=== PATIENT | male | born 1975 | race Caucasian/White ===

== ENCOUNTER 2018-05-21 19:23 | Emergency (ER) | payer BC, SELFPAY ==
[2018-05-21 19:24] VITALS: BP 131/73; PULSE 105; RESP 16; TEMP 36.4; O2SAT 95; BMI 31.0
--- NOTE | 2018-05-21 20:00 | ED.VISSUMM ---
- ER Visit Summary Date of Service: 05/21/18 Chief Complaint: Back and shoulder pain History of Present Illness: The patient is a 43 M increasing left shoulder and back pain over the past 2 weeks. Symptoms started after heavy moving activities. No falls or direct injuries. No paresthesias. Saw the chiropractor twice a week ago with transient relief. Saw his PCP 2 days ago placed on Flexeril. Symptoms not improving. History of [place] with stent in July of last year on Brilinta. He has been trying Tylenol with no relief. Symptoms worse with movement. Denies previous similar symptoms in the past. Patient has tolerated Percocet in the past with history of kidney stones. Denies any recent opiate prescriptions. Physical Examination: General: Alert and oriented ?3, mild distress HEENT: Normocephalic, atraumatic. Moist mucosa membranes Neck: supple, nontender. Cardiovascular: Regular rate and rhythm, no murmurs Respiratory: Normal breath sounds, symmetric, no distress Back: Reproducible tenderness at the left trapezius and lat muscles. Mild tenderness at the left rhomboids. No bony midline tenderness. Abdomen: Soft, nontender, nondistended Extremities: Nontender, no edema, pulses intact ?4 Neuro: no focal neurological deficits. Test Results: [] Emergency Department Course and Treatment: Patient with reproducible muscle pain. Patient will be switched to Valium with first dose in the ED. Percocet given for symptom control. No NSAIDs due to his Brilinta use an TN history recently.OARRS report is negative. 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 He will follow-up with his PCP for refills. Treatment Plan: [] Disposition: Discharge Impression: 1. Thoracic muscle strain This note was generated with Reverse [employer] dictation software. It may contain incorrect words, spelling, and punctuation that were not noted in review of the chart prior to signing ED Disposition - Plan for ED Patient: Disposition: Home or Assisted Living Chief Complaint: Back Diagnosis: Strain of muscle and tendon of back wall of thorax, initial encounter Instructions: ED Sprain Thoracic Spine Prescriptions: Oxycodone HCl/Acetaminophen [Percocet 5/325] 1 tablet PO Q6H PRN PRN 3 Days #12 tablet PRN Reason: Pain Diazepam [Valium] 5 mg PO Q8 PRN #15 tablet PRN Reason: Muscle Spasm Referrals: Cisco Yoder MD [Primary Care Provider] - 3-5 Days
[2018-05-21] MEDS: diazePAM 5 MG Tablet PO (20:05)
[2018-05-21] MEDS: oxyCODONE 5 MG Tablet PO (20:05)
== END 2018-05-21 20:10 | disposition home or self-care (01) ==
PROVIDERS: Emergency Provider Emergency Medicine; Family Provider Family Medicine; PCP Family Medicine
DX: S29.012A Strain of muscle and tendon of back wall of thorax, initial encounter (principal); I25.2 Old myocardial infarction; I10 Essential (primary) hypertension; E78.00 Pure hypercholesterolemia, unspecified; Z95.5 Presence of coronary angioplasty implant and graft; Z87.442 Personal history of urinary calculi; Z79.82 Long term (current) use of aspirin; Z79.84 Long term (current) use of oral hypoglycemic drugs; Z79.02 Long term (current) use of antithrombotics/antiplatelets; Z79.899 Other long term (current) drug therapy; X50.0XXA Overexertion from strenuous movement or load, initial encounter; Y93.89 Activity, other specified; Y92.89 Other specified places as the place of occurrence of the external cause; Y99.8 Other external cause status
CPT/HCPCS: 99281

== ENCOUNTER → 2019-04-25 | Outpatient (CLI) | payer OTHER, SELFPAY ==
--- NOTE | 2019-04-25 10:45 | MRI_ITS ---
STUDY: MRI LEFT SHOULDER REASON FOR EXAM: Male, 44 years old. Left shoulder sprain after lifting injury 2 days ago. Pain. TECHNIQUE: Standardized fat and water weighted pulse sequences were obtained in all 3 orthogonal planes. COMPARISON: None. FINDINGS: Minimal supraspinatus and infraspinatus tendinosis without a full-thickness tear (coronal series 5 images 7-13). Subscapularis tendinosis. No full-thickness tear (axial series 4 images 12-16). Normal teres minor tendon. Normal supraspinatus muscle. Normal infraspinatus muscle. Normal subscapularis muscle. Normal teres minor muscle. Postsurgical changes of repair of the posterior and inferior glenoid labrum (axial series 4 images 15-19). Small glenohumeral joint effusion (axial series 4 image 13). Cystic change in the anteromedial aspect of the humeral head (axial series 01/01/2011). Normal biceps labral complex. Normal intracapsular long biceps tendon. Normal capsulo- ligamentous complex. Normal rotator interval. Acromioclavicular joint hypertrophy with narrowing of the subacromial space. AC joint effusion (coronal series 6 images in-18). There is a Type II morphology (curved), with a neutral orientation. There is no subacromial-subdeltoid bursal fluid. Normal visualized coracohumeral and coracoacromial ligaments. Normal quadrilateral space. Normal axillary space. Normal deltoid muscle. Normal trapezius muscle. MRI/Upper Ext Joint Only(Routine) IMPRESSION: Minimal supraspinatus, infraspinatus and subscapularis tendinosis. No full-thickness tear is present. Postsurgical changes of repair of the posterior and inferior glenoid labrum. Cystic change in the humeral head. Acromioclavicular joint hypertrophy with narrowing of the subacromial space. AC joint effusion. Glenohumeral joint effusion. Electronically Signed: Holland Fernandez MD at 12:37 EDT , Service support ,
== END | disposition home or self-care (01) ==
PROVIDERS: Family Provider Family Medicine; PCP Family Medicine; Referring Provider Family Medicine; Visit Provider Family Medicine
DX: S43.402A Unspecified sprain of left shoulder joint, initial encounter (principal)
CPT/HCPCS: 73221

== ENCOUNTER 2019-10-01 00:50 | Emergency (ER) | payer BC, SELFPAY ==
[2019-10-01 00:52] VITALS: BP 156/112; PULSE 101; RESP 20; TEMP 36.4; O2SAT 100; BMI 32.6
[2019-10-01 00:55] VITALS: BP 156/112; PULSE 101; RESP 20; O2SAT 100
--- NOTE | 2019-10-01 01:15 | RAD_ITS ---
STUDY: X-RAY - LEFT SHOULDER REASON FOR EXAM: Male, 44 years old. LT SHOULDER PAIN FROM LIFTING HEAVY OBJECT TONIGHT, HX OF LT SHOULDER SURGERY IN JULY 2019 TECHNIQUE: 4 view(s) of the shoulder. COMPARISON: None. FINDINGS: Normal glenohumeral articulation. There is degenerative arthrosis of the acromioclavicular joint without inferior osseous spur formation. Normal acromion. Normal humeral head and visualized proximal humerus. The soft tissue structures are unremarkable. Normal visualized pulmonary apex. RAD/Shoulder min 2 Views IMPRESSION: There is degenerative arthrosis of the acromioclavicular joint. Electronically Signed: Amy Chanel, at 2:10 EST Tel , Service support ,
[2019-10-01] MEDS: HYDROcodone Bitartrate/Apap 5/325 Tablet PO (01:19)
--- NOTE | 2019-10-01 02:00 | ED.DCSUM_ITS ---
History of Present Illness Chief Complaint: Upper Extremity Injury Informant: Patient Occurred: Days - 2 Context: Sudden Onset Timing: Continuous Quality of Pain: Sharp Associated Symptoms: Negative for: Parasthesia, Weakness, Loss of Funtion Narrative: Patient is a 44-year-old male with history of left bicep tendon repair presenting with pain of his left shoulder. Patient states he was moving 25 pound dresser 2 days ago when he felt a pop in his shoulder. Since then he has had worsening pain in his shoulder. He states he cannot move his arm/shoulder because of the pain. The pain is diffuse and over the top of the shoulder and into his upper chest. He states it is now starting to radiate into his neck. He denies any vision changes. He denies any numbness or tingling. He denies any associated chest pain or shortness of breath. He denies any other complaints at this time. He is been alternating Tylenol and aspirin at home for his pain. He also thinks he is taken some Motrin. Past Medical History - Allergies and Home Meds Allergies/Adverse Reactions: Allergies No Known Allergies Allergy (Verified 05/21/18 19:26) Primary Care Physician: Cisco Yoder MD [Primary Care Provider] - Past Medical History: - - Coronary artery disease, hypertension, depression Surgical History: - - Left bicep surgery, cardiac stent Lives: With Family Smoking Status: Former smoker Review of Systems General: Denies: Chills, Fever, Sweats Eyes: Denies: Visual changes - bilaterally, Diplopia ENT: Denies: Rhinorrhea, Sore throat Cardiovascular: Denies: Chest pain, Palpitations Respiratory: Denies: Dyspnea, Cough, Dyspnea on exertion Gastrointestinal: Denies: Abdominal pain, Nausea, Vomiting, Diarrhea, Melena, Hematochezia Genitourinary: Denies: Dysuria, Hematuria, Frequency Musculoskeletal: Reports: Extremity Pain - Left shoulder. Denies: Back pain, Swelling Skin: Denies: Rash, Wounds Neurological: Denies: Headache, Weakness, Numbness Physical Exam Vital Signs/Narrative: Vital Signs Temp Pulse Resp BP Pulse Ox 10/01/19 00:55 101 H 20 H 156/112 H 100 10/01/19 00:52 97.5 F L 101 H 20 H 156/112 H 100 Inital Vital Signs reviewed: Yes Left Shoulder: Limited ROM - In all planes secondary to pain. Negative for: Deformity, Edema Left Humerus: Negative for: Abrasion, Contusion, Deformity, Edema, Limited ROM Left Elbow: Negative for: Deformity, Edema, Limited ROM Left Forearm: Negative for: Deformity, Hematoma, Limited ROM Left Wrist: Negative for: Deformity, Hematoma, Limited ROM General: Well nourished, Well developed Head: Normocephalic, Atraumatic Eyes: Perrl, EOMI ENT: No Trauma, Moist Mucous Membranes Neck: Nontender, Full ROM Cardiovascular: Regular rate, Regular rhythm, No murmurs Respiratory: No distress, CTA bilaterally, Chest nontender Abdomen: Soft, Nontender, Nondistended, Normal bowel sounds Back: Nontender Skin: Normal color, No rash Neurological: Alert, Oriented x3, Cranial nerves II-XII grossly intact, Normal Strength, Normal Sensation Psychological: Normal affect Diagnostic/Tx/Re-eval Clinical Impression(s) from Imaging Studies Shoulder X-Ray 10/01/19 01:15 IMPRESSION: There is degenerative arthrosis of the acromioclavicular joint. Electronically Signed: Amy Chanel, at 2:10 EST Tel , Service support , - Medical Decision Making Patient is evaluated for left shoulder pain. He was moving something when he felt a pop. He has had pain and decreased range of motion since then. Patient has appointment to see his orthopedist in 3 days. He is neurovascularly intact. X-ray shows some degenerative changes but no acute fracture dislocation. I suspect rotator cuff injury as he is significant pain when he tries to flex his shoulder above 90 degrees or abduction above 45 degrees. Patient is treated with [place] in the emergency room. He is discharged home with a short course of it after an oars report is checked and it shows that he does not have any active opioid prescriptions. Patient will continue to take ibuprofen as needed as well. Patient is counseled on signs and symptoms requiring return to the emergency room. Patient verbalizes agreement and understand this plan. Patient discharged home in stable and improved condition. ED Disposition - Plan for ED Patient: Disposition: Home or Assisted Living Diagnosis: Injury of left shoulder Instructions: Rotator Cuff Tear Prescriptions: Ibuprofen [Motrin] 600 mg PO Q6H PRN PRN #20 tab PRN Reason: Pain Score 1-1010 Prescription Printed Hydrocodone/Acetaminophen [[place] 5-325 Tablet] 1 ea PO Q6H PRN PRN 3 Days #12 tab PRN Reason: Pain Score 6-10/10 Prescription Printed Referrals: Cisco Yoder MD [Primary Care Provider] - Additional Instructions: Please follow-up with your orthopedist as soon as you can. I suspect you have an injury of your rotator cuff. Return the emergency room if you develop w orsening symptoms, numbness or inability to use your arm.
[2019-10-01 03:01] VITALS: BP 124/95; PULSE 74; RESP 15; O2SAT 98
== END 2019-10-01 03:01 | disposition home or self-care (01) ==
PROVIDERS: Emergency Provider Emergency Medicine; Family Provider Family Medicine; PCP Family Medicine
DX: S49.92XA Unspecified injury of left shoulder and upper arm, initial encounter (principal); X50.0XXA Overexertion from strenuous movement or load, initial encounter; Y93.89 Activity, other specified; M19.012 Primary osteoarthritis, left shoulder; I25.10 Atherosclerotic heart disease of native coronary artery without angina pectoris; I10 Essential (primary) hypertension; F32.9 Major depressive disorder, single episode, unspecified; Z95.5 Presence of coronary angioplasty implant and graft; Z79.82 Long term (current) use of aspirin; Z79.899 Other long term (current) drug therapy; Z87.891 Personal history of nicotine dependence
CPT/HCPCS: 73030; 99283

== ENCOUNTER 2022-11-21 08:04 | Emergency (ER) | payer BC, SELFPAY ==
[2022-11-21 08:05] VITALS: BP 150/95; PULSE 97; RESP 24; TEMP 36.6; O2SAT 94; BMI 32.1
[2022-11-21 08:18] VITALS: BP 146/95; PULSE 88; RESP 18; TEMP 36.8; O2SAT 94
--- NOTE | 2022-11-21 08:24 | EDS_ITS ---
HPI HPI - URI History of Present Illness Chief Complaint: Cold Sx Informant: patient Narrative Narrative: Patient ill for 5 or 6 days total, with cough nonproductive, congestion, sore throat, some headaches, no fevers or chills that he knows of, no fatigue or myalgias. Called his doctor thought he had a sinus infection and empirically placed on amoxicillin, was not seen physically in the office. Started amoxicillin 2 days ago. Feels like he is getting worse now swelling in his throat, and difficulty breathing as a result of the sensation of swelling in the throat. He does not have any feelings in his chest like that is the cause of his dyspnea. Denies any chest pain. His throat hurts a lot, more on the right side of his neck submandibular area where he points to. He had an anterior decompression and fusion of the cervical spine remotely and has a right-sided scar anterior neck from that. Patient states he can lay down without trouble breathing or more so than while sitting. He is unvaccinated against COVID and influenza. He denies any known sick contacts. ROS ROS ED Constitutional Constitutional ED: Denies body ache(s), chills, fatigue or fever(s) ENT ENT ED: Reports as per HPI, nasal congestion, rhinorrhea and sore throat; Denies ear pain Cardiovascular Cardiovascular: Denies chest pain or palpitations Respiratory/Chest Respiratory/Chest: Reports as per HPI, cough and dyspnea; Denies dyspnea on exertion Gastrointestinal Gastrointestinal: Denies abdominal pain, diarrhea, nausea or vomiting Genitourinary Genitourinary ED: Denies dysuria or hematuria Musculoskeletal Musculoskeletal: Denies myalgias or neck pain Integumentary Denies abscess or rash Neurologic Neurologic: Reports headache(s); Denies paresthesias or weakness Psychiatric Psychiatric: Denies depression or suicidal thoughts Endocrine Endocrinology: Denies polydipsia or polyuria [facility] Medical History (Updated 11/21/22 @ 11:[address] Bob Warren MD) CAD (coronary artery disease) Insulin dependent diabetes mellitus Home Medications aspirin 81 mg chewable tablet 81 mg PO DAILY 05/21/18 [History Last Taken Unknown] dulaglutide 0.75 mg/0.5 mL subcutaneous pen injector (Trulicity) 0.75 mg SQ QWEEK 05/21/18 [History Last Taken Unknown] lisinopril 5 mg tablet 5 mg PO DAILY 05/21/18 [History Last Taken Unknown] metformin 500 mg tablet 500 mg PO DAILY 05/21/18 [History Last Taken Unknown] rosuvastatin 20 mg tablet 20 mg PO DAILY 05/21/18 [History Last Taken Unknown] sertraline 50 mg tablet 50 mg PO DAILY 05/21/18 [History Last Taken Unknown] testosterone cypionate 200 mg/mL intramuscular kit (Testone CIK) 200 mg IM QWEEK 05/21/18 [History Last Taken Unknown] ticagrelor 90 mg tablet (Brilinta) 90 mg PO BID 05/21/18 [History Last Taken Unknown] ibuprofen 600 mg tablet 600 mg PO Q6H PRN PRN Pain Score 1-1010 #20 tabs 10/01/19 [Rx Last Taken Unknown] insulin aspart U-100 100 unit/mL (3 mL) subcutaneous pen 15 units SQ TID 02/13 [History Last Taken Unknown] Allergy/AdvReac Type Severity Reaction Status Date / Time No Known Allergies Allergy Verified 11/21/22 08:07 Family History no significant family his Surgical History History of coronary artery stent placement Social History Smoking Status: Former smoker EXAM Physical Exam Const Vital Signs: 11/21/22 08:05 11/21/22 08:18 11/21/22 08:18 Temperature 97.8 F 98.2 F 98.2 F Temperature Source Temporal Oral Oral Pulse Rate 97 88 88 Respiratory Rate 24 H 18 18 Blood Pressure 150/95 H 146/95 H 146/95 H Blood Pressure Mean 113 112 112 Pulse Ox 94 94 94 Oxygen Delivery Method Room Air Room Air Room Air 11/21/22 08:18 11/21/22 09:32 Temperature 98.1 F Temperature Source Oral Pulse Rate 92 Respiratory Rate 16 Blood Pressure 144/97 H Blood Pressure Mean 112 Pulse Ox 95 Oxygen Delivery Method Room Air Room Air Positive well nourished and well developed General Appearance ED: well developed and NAD HEENT Reports moist mucous membranes HEENT Narrative: Mild trismus. Posterior oropharyngeal erythema, both tonsils appear to be prominent but there is no asymmetry in the uvula appears unremarkable. No tongue elevation or submental edema. No purulent nasal discharge or sinus tenderness. normocephalic and atraumatic Eyes PERRL and EOMs intact bilaterally Neck supple and no meningeal signs Neck Narrative: Tender right submandibular more than left. No posterior tenderness or obvious lymphadenopathy. I do not palpate any obviously enlarged lymph nodes. There is no objective swelling exteriorly. Patient can extend his neck by tilting his chin up in the air while sitting without any stridor or dyspnea. Resp normal respiratory effort and clear to auscultation bilaterally Cardio no murmurs Rate: regular rate; Negative for tachycardic Rhythm: regular rhythm Back/Spine normal ROM Extremity normal to inspection and full ROM Neuro oriented x3, CN's II-XII intact bilaterally and no sensory deficits noted Sensorium / Orientation: alert Motor Exam: strength 5/5 throughout Psych mental status grossly normal Skin Lesions: no lesions Rashes: no rashes MDM MDM MDM Narrative Medical decision making narrative: Initially swabs for strep, COVID, flu performed, those were negative so I thought prudent to obtain CT of the neck soft tissues given the patient's symptoms and trismus. labs were obtained at this time to, these were reviewed by myself. Slightly elevated glucose of 200, white blood count 20, slight leftward shift no bandemia, and CT shows a right peritonsillar abscess with an air-fluid level and retropharyngeal extension with mass effect on the hypopharynx/airway. Empirically treated with Unasyn 3 g IV as well as Decadron 10 mg despite the risk of hyperglycemia given the benefits outweigh the risks here. Clinically, the patient is spitting secretions and tolerating them, and his airway is patent without stridor or distress. We do not have any otolaryngology coverage at this time or all weekend, it is Wednesday morning. Therefore the patient will require transfer for further otolaryngology evaluation. I discussed with ENT Dr. Robbins at [facility]. Attempted to send images but he was not able to see them, he agrees with sending the patient to the ED so that they could evaluate clinically further. Excepted their to the ED by Dr. Newman. Lab Data Attestation: I reviewed the patient's lab results. Labs: Laboratory Results - last 24 hr 11/21/22 11/21/22 09:23 09:23 WBC 20.0 H RBC 5.70 Hgb 16.5 Hct 47.8 MCV 83.9 MCH 28.9 MCHC 34.5 RDW Std Deviation 36.9 RDW Coeff of Radha 12.2 Plt Count 262 MPV 10.1 Immature Gran % (Auto) 0.500 Neut % (Auto) 80.7 H Lymph % (Auto) 10.5 L [place] % (Auto) 7.8 Eos % (Auto) 0.1 Baso % (Auto) 0.4 Absolute Neuts (auto) 16.2 H Absolute Lymphs (auto) 2.10 Nucleated RBC % 0 Diff Path Review May foll Platelet Estimate ADEQUATE Microcytosis RARE Sodium 134 L Potassium 3.9 Chloride 100 Carbon Dioxide 27.0 Anion Gap 7 BUN 18 Creatinine 1.00 Estim Creat Clear Calc 84.46 Est GFR (MDRD) Af Amer 102 Est GFR (MDRD) Non-Af 85 BUN/Creatinine Ratio 18.0 Glucose 200 H Calcium 9.4 Radiography Diagnostic Testing: Clinical Impression(s) from Imaging Studies Soft Tissue Neck CT 11/21/22 09:07 IMPRESSION: The right hypopharynx, there are multiple suspicious low-density enhancing lesions, some containing air consistent with abscesses. These abscesses are causing mass effect upon the right hypopharynx and deviating the airway from right to left. Additionally, the sagittal images show that there is also retropharyngeal involvement with a thin fluid line noted from C2 to C4. There is associated mass effect and disruption of the fat planes but no suspicious adenopathy. ENT consultation and direct visualization recommended for further evaluation N.B. : The above Results were Read Back by Jordan Amador MD to Bob Warren MD, and understanding confirmed on 11/21/2022 10:03:18 (ET). Electronically Signed: Jordan Amador MD at 10:04 EST , ADDENDUM: 11/21/22 1011 IMPRESSION: The right hypopharynx, there are multiple suspicious low-density enhancing lesions, some containing air consistent with abscesses. These abscesses are causing mass effect upon the right hypopharynx and deviating the airway from right to left. Additionally, the sagittal images show that there is also retropharyngeal involvement with a thin fluid line noted from C2 to C4. There is associated mass effect and disruption of the fat planes but no suspicious adenopathy. ENT consultation and direct visualization recommended for further evaluation N.B. : The above Results were Read Back by Jordan Amador MD to Bob Warren MD, and understanding confirmed on 11/21/2022 10:03:18 (ET). Electronically Signed: Jordan Amador MD at 10:04 EST , Discharge Plan Triage Chief Complaint: Cold Sx ED Provider: Bob Warren Dx/Rx/DC Orders Clinical Impression: Peritonsillar abscess Prescriptions: No Action metformin 500 MG tablet 500 mg PO DAILY Label Comments: TAKE 1 TABLET BY MOUTH TWICE A DAY aspirin 81 MG Tab.Chew 81 mg PO DAILY Label Comments: CHEW AND SWOLLOW 1 TABLET BY MOUTH EVERY DAY lisinopril 5 MG tablet 5 mg PO DAILY Label Comments: TAKE 1 TABLET BY MOUTH EVERY DAY sertraline 50 MG tablet 50 mg PO DAILY Label Comments: TAKE ONE TABLET ORALLY ONCE A DAY rosuvastatin 20 MG tablet 20 mg PO DAILY Label Comments: TAKE 2 TABLETS BY MOUTH DAILY ticagrelor [Brilinta] 90 MG tablet 90 mg PO BID Label Comments: TAKE 1 TABLET BY MOUTH TWICE A DAY dulaglutide [Trulicity] 0.75 MG/0.5 ML Pen.Injctr 0.75 mg SQ QWEEK Label Comments: INJECT 0.75 MG SUBCUTANEOUSLY EVERY WEEK testosterone cypionate [Testone CIK] 200 MG/ML Kit 200 mg IM QWEEK insulin aspart U-100 100 UNITS/ML insulin pen 15 units SQ TID Label Comments: INJECT 15 UNIT(S) SUBCUTANEOUSLY 3 TIMES A DAY BEFORE MEALS ibuprofen 600 MG tablet 600 mg PO Q6H PRN PRN (Reason: Pain Score 1-10/10) Qty: 20 0RF Primary Care Provider: Cisco Yoder Referrals: Cisco Yoder MD [Primary Care Provider] - Disposition Disposition: Acute Care Hospital Discharge Location: [facility]
--- NOTE | 2022-11-21 09:07 | CT_ITS ---
STUDY: CT SOFT TISSUE NECK WITH CONTRAST REASON FOR EXAM: Male, 47 years old. Swelling, pain RADIATION DOSAGE (If Supplied By Facility): CTDIvol = ( 19.51 ) mGy, DLP = ( 575.28 ) mGycm TECHNIQUE: The patient was scanned in a multi-detector CT scanner. High resolution transaxial imaging was performed following intravenous administration of IV 100mL Isovue-370. Sagittal and coronal images were reconstructed. Individualized dose optimization techniques were used for this CT. COMPARISON: None. FINDINGS: In the right hypopharynx, just above the right hyoid bone, there are either multiple low-density fluid collections or a large multicystic septated fluid collection consistent with abscess/abscesses. The largest of these pockets measures 2.08 x 1.24 x 3.1 cm and contains bubbles of air, other smaller pockets measuring around 1 and 1.5 cm also noted. The sagittal images also demonstrate that there is involvement of the retropharyngeal space. The retropharyngeal space involvement appears to extend from the top of C2-C4. These abscesses are narrowing the hypopharynx and deviating the airway from right to left. There is localized mass effect and disruption of the right hypopharyngeal fat planes. No suspicious bulky adenopathy noted, there is no evidence of narrowing or thrombosis of nearby vessels. ENT consultation and direct visualization recommended for further evaluation. Normal bilateral parotid glands. 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 Normal bilateral parapharyngeal spaces. Normal bilateral carotid spaces. Normal bilateral sublingual and submandibular glands and spaces. Normal visualized nasopharynx. Normal retropharyngeal space. Normal perivertebral space. The visualized tongue, tongue base and oropharynx are normal. The visualized cervical lymph nodes (levels I-) are within normal size limits, and maintain normal morphology. Normal subglottic trachea. Low-density thyroid nodules noted. Normal visualized pulmonary apices. Normal visualized paranasal sinuses. Normal visualized cervical spine. CT/Soft Tissue Neck WITH Contrast IMPRESSION: The right hypopharynx, there are multiple suspicious low-density enhancing lesions, some containing air consistent with abscesses. These abscesses are causing mass effect upon the right hypopharynx and deviating the airway from right to left. Additionally, the sagittal images show that there is also retropharyngeal involvement with a thin fluid line noted from C2 to C4. There is associated mass effect and disruption of the fat planes but no suspicious adenopathy. ENT consultation and direct visualization recommended for further evaluation N.B. : The above Results were Read Back by Jordan Amador MD to Bob Warren MD, and understanding confirmed on 11/21/2022 10:03:18 (ET). Electronically Signed: Jordan Amador MD at 10:04 EST ,
[2022-11-21] MEDS: 0.9% Normal Saline 1,000 ML 999 ML IV (09:23)
[2022-11-21 09:32] VITALS: BP 144/97; PULSE 92; RESP 16; TEMP 36.7; O2SAT 95
[2022-11-21 09:38] LABS: Absolute Neutrophil Count 16.2 X10^3/uL (2.0-7.7); Basophil# 0.07 X10^3/uL; Basophil% 0.4 % (0-1); Eosinophil# 0.02 X10^3/uL; Eosinophils% 0.1 % (0-5); Hematocrit 47.8 % (40-54); Hemoglobin 16.5 g/dL (13.0-16.5); Lymphocyte % 10.5 % (19-41); Mean Corp Hgb Conc 34.5 g/dL (32-36); Mean Corpuscular Hgb 28.9 pg (27.0-32.0); Mean Corpuscular Volume 83.9 fL (80-94); Mean Platelet Vol. 10.1 fl (6.2-12.0); Monocyte# 1.55 X10^3/uL; Monocyte% 7.8 % (0-10); NRBC Flagged by Analyzer 0 % (0-5); Neutrophil # 16.17 X10^3/uL (2.7-7.7); Neutrophil % 80.7 % (47-70); POSITIVE DIFFERENTIAL YES; Platelet Count 262 K/mm3 (150-450); RBC Distribution Width CV 12.2 % (11.6-14.6); RBC Distribution Width SD 36.9 fl (35.1-43.9)
[2022-11-21 09:45] LABS: Differential Indicated SCAN CRITERIA MET
[2022-11-21 09:51] LABS: Anion Gap 7 (5-15); BUN 18 mg/dL (7-18); Calcium,Total 9.4 mg/dL (8.5-10.1); Chloride 100 mmol/L (98-107); EST Glomerular Filtration Rate 85 mL/min (>60); Est Glom Filt Rate - Afr Amer 102 mL/min (>60); Estimated Creatinine Clearance 84.46 ml/min; Glucose 200 mg/dL (74-106); Potassium 3.9 mmol/L (3.5-5.1); Sodium Level 134 mmol/L (136-145)
[2022-11-21 10:05] LABS: Platelet Estimate ADEQUATE (ADEQ)
[2022-11-21 10:06] LABS: Microcytosis RARE
[2022-11-21] MEDS: dexAMETHasone 10 MG/ML Vial IV (10:11)
[2022-11-21] MEDS: Morphine 4 MG/ML Syringe IV (11:50)
[2022-11-21 11:53] VITALS: BP 142/94; BP 142/95; PULSE 90; RESP 16; RESP 18; TEMP 36.6; O2SAT 96
[2022-11-23 14:10] LABS: Pathologist Review Reviewed
== END 2022-11-21 12:16 | disposition short-term general hospital (02) ==
PROVIDERS: Emergency Provider Emergency Medicine; PCP Family Medicine; Visit Provider Emergency Medicine
DX: J36 Peritonsillar abscess (principal); I25.10 Atherosclerotic heart disease of native coronary artery without angina pectoris; Z87.891 Personal history of nicotine dependence; Z95.5 Presence of coronary angioplasty implant and graft
CPT/HCPCS: 70491; 80048; 85025; 87428; 87880; 96365; 96366; 96375; 99284; J7030; Q9967; A4216; J0295

== ENCOUNTER → 2023-07-30 | Outpatient (CLI) | payer BC, SELFPAY | END | disposition home or self-care (01) | LOC: LABSPEC 15:17 | PROVIDERS: PCP Family Medicine; Visit Provider Otolaryngology | DX: J32.8 Other chronic sinusitis (principal) | CPT/HCPCS: 87070; 87205 ==

== ENCOUNTER → 2023-09-03 | Outpatient (CLI) | payer BC, SELFPAY ==
--- NOTE | 2023-09-03 16:34 | CT_ITS ---
STUDY: CT MAXILLOFACIAL SINUSES REASON FOR EXAM: Male, 48 years old. SINUSITIS RADIATION DOSAGE (If Supplied By Facility): CTDIvol = ( 33.06 ) mGy, DLP = ( 796.66 ) mGycm TECHNIQUE: The patient was scanned in a multi detector CT scanner. High resolution axial imaging was performed without the administration of intravenous contrast material. Sagittal and coronal images were reconstructed. Individualized dose optimization techniques were used for this CT. COMPARISON: None. FINDINGS: FRONTAL SINUSES: Minimal mucosal thickening of the frontal sinuses bilaterally. ETHMOIDAL SINUSES: There is moderate mucosal thickening of the anterior and mid ethmoid air cells bilaterally.. MAXILLARY SINUSES: Small polyp or mucous retention cyst in right maxillary sinus.. Mild mucosal thickening of the maxillary sinuses bilaterally slightly more pronounced on the right without air-fluid level. SPHENOIDAL SINUSES: Minimal mucosal thickening of left sphenoid sinus without air-fluid level. There is occlusion of the right maxillary sinus ostium and infundibulum due to combination of mucosal thickening and Ciaran air cell. There is also severe mucosal thickening near occlusion of the left maxillary sinus ostium and infundibulum. due to mucosal thickening Normal bilateral middle turbinates. Normal bilateral inferior turbinates. Severe deviation of nasal septum towards the right. There is patency of the bilateral nasal airways. The visualized osseous structures are normal. The visualized bilateral orbital contents are normal. CT/Sinus/Facial Bone IMPRESSION: Bilateral maxillary sinusitis more severe on the right with occlusion of the sinus ostium and infundibulum on the right and near occlusion on the left.. Moderate mucosal thickening of the anterior and mid ethmoid air cells and minimal post thickening of the bilateral frontal and left sphenoid sinuses Severe septal deviation towards the right Electronically Signed: Lorenzo Navarrete MD at 17:19 EST ,
== END | disposition home or self-care (01) ==
LOC: CT 16:30
PROVIDERS: PCP Family Medicine; Visit Provider Otolaryngology
DX: J32.8 Other chronic sinusitis (principal)
CPT/HCPCS: 70486